=== PATIENT | female | born 1960 | race Caucasian/White ===

== ENCOUNTER → 2024-12-22 | Outpatient (CLI) | payer MEDICARE, OTHER, SELFPAY ==
--- NOTE | 2024-12-22 13:50 | RAD_ITS ---
PROCEDURE: ABDOMEN SINGLE VIEW 12/22/2024 REASON FOR EXAM: CALCULUS OF KIDNEY TECHNIQUE: ABDOMEN SINGLE VIEW COMPARISON: None FINDINGS: Bowel gas: Bowel gas pattern is normal. No evidence of bowel obstruction. Calcifications: There are subtle densities projecting over the left renal shadow measuring up to 7 mm in size. Bones: There are degenerative changes of the spine and sacroiliac joints.Other: RAD/Abdomen Single View IMPRESSION: Subtle densities projecting over the left renal shadow could represent renal st ones, though artifact from overlying enteric contents could appear similar. Reading Location: [id number]
== END | disposition home or self-care (01) ==
LOC: RAD 13:47
PROVIDERS: PCP Family Medicine; Referring Provider Nurse Practitioner; Visit Provider Nurse Practitioner
DX: N20.0 Calculus of kidney (principal)
CPT/HCPCS: 74018

== ENCOUNTER → 2024-12-31 | Outpatient (CLI) | payer MEDICARE, OTHER, SELFPAY ==
--- NOTE | 2024-12-31 10:23 | RAD_ITS ---
PROCEDURE: ABDOMEN SINGLE VIEW 12/31/2024 REASON FOR EXAM: CALCULUS OF KIDNEY TECHNIQUE: ABDOMEN SINGLE VIEW COMPARISON: 12/22/2024 FINDINGS: Interval placement of left-sided ureteral stent in good position. 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 Additional Steinstrasse in the more distal ureter. Additional stones/stone fragments overlying the lower pole of the left kidney. No visible right-sided renal stones. Nondistended bowel. Clear lung bases. RAD/Abdomen Single View IMPRESSION: Interval lithotripsy with placement of ureteral stent in good position. 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 Follow up imaging a s clinically determined. Reading Location: [facility]
== END | disposition home or self-care (01) ==
LOC: RAD 10:19
PROVIDERS: PCP Family Medicine; Referring Provider Urology; Visit Provider Urology
DX: N20.0 Calculus of kidney (principal)
CPT/HCPCS: 74018

== ENCOUNTER → 2025-01-07 | Outpatient (CLI) | payer MEDICARE, OTHER, SELFPAY ==
[2025-01-07 10:55] LABS: Hematocrit 37.1 % (37-47); Hemoglobin 12.5 g/dL (12.0-15.0); Mean Corp Hgb Conc 33.7 g/dL (32-36); Mean Corpuscular Volume 94.4 fL (81-99); Mean Platelet Vol. 10.7 fl (6.2-12.0); Platelet Count 149 K/mm3 (150-450); RBC Distribution Width CV 12.5 % (11.6-14.6); RBC Distribution Width SD 43.4 fl (35.1-43.9); Red Blood Count 3.93 M/mm3 (4.2-5.4); White Blood Count 6.9 K/mm3 (4.4-11.0)
[2025-01-07 11:52] LABS: Anion Gap 13 (5-15); BUN 17 mg/dL (4-19); BUN/Creat Ratio 19.9 RATIO (10-20); Calcium,Total 9.5 mg/dL (7.6-11.0); Carbon Dioxide 22.2 mmol/L (21.0-32.0); Chloride 104 mmol/L (98-108); Glucose 100 mg/dL (70-99); Potassium 4.3 mmol/L (3.3-5.1)
[2025-01-07 18:52] LABS: Xtra Tube EP Lab EXTRA TUBE
== END | disposition home or self-care (01) ==
PROVIDERS: PCP Family Medicine; Referring Provider Urology; Visit Provider Urology
DX: N20.0 Calculus of kidney (principal)
CPT/HCPCS: 36415; 80048; 85027

== ENCOUNTER → 2025-01-11 | Outpatient (CLI) | payer MEDICARE, OTHER, SELFPAY ==
--- NOTE | 2025-01-08 09:30 | CALC_PTH ---
PATIENT: [id number] AGE/SX: 64/F ROOM: RE01/11/[address]: Dr. Tr Daily MD : 1960 BED: DIS: 01/11/2025 SPEC #: [id number] RECD: 01/11/25 15:47 STATUS: POLLO DAMON #: [id number] REHAN: 01/08/25 09:[address]: Tr Daily DEPT: SURGICAL PATHOLOGY RECD BY: Costa Novoa ENTERED: 01/12/25 09:30 SP TYPE: Calculi OTHR DR: Dr. Luis Ledesma MD Tissues: A - CALCULI Procedures: Surgery Specimen Level I HEADER OPERATION: Left ureteroscopy, laser stone, left ureteral stent placement PRE-OP DIAGNOSIS: Calculus of left kidney TISSUE SUBMITTED: A- Left renal stone fragments GROSS DIAGNOSIS A. Kidney, left, stones, ureteroscopy: - Urolithiasis (gross examination only). - Chemical analysis pending, to be reported separately GROSS DESCRIPTION A. Received in formalin labeled with the patient's name and date of . Designated as left kidney stones are multiple irregular, yellow to brown calculi, <0.1 cm to 0.3 cm. No sections are submitted. The specimen is for gross examination only. [place] 01/12/2025 CPT:69141
--- NOTE | 2025-01-08 09:30 | CALC_PTH ---
PATIENT: [facility]OW[facility]UN[facility]ERS [id number] AGE/SX: 64/F ROOM: RE01/11/[address]: Dr. Tr Daily MD : 1960 BED: DIS: 01/11/2025 SPEC #: [id number] RECD: 01/11/25 15:47 STATUS: POLLO DAMON #: [id number] REHAN: 01/08/25 09:[address]: Tr Daily DEPT: SURGICAL PATHOLOGY RECD BY: Costa Novoa ENTERED: 01/12/25 09:30 SP TYPE: Calculi OTHR DR: Dr. Luis Ledesma MD Tissues: A - CALCULI Procedures: Surgery Specimen Level I HEADER OPERATION: Left ureteroscopy, laser stone, left ureteral stent placement PRE-OP DIAGNOSIS: Calculus of left kidney TISSUE SUBMITTED: A- Left renal stone fragments GROSS DIAGNOSIS A. Kidney, left, stones, ureteroscopy: - Urolithiasis (gross examination only). - Chemical analysis pending, to be reported separately GROSS DESCRIPTION A. Received in formalin labeled with the patient's name and date of . Designated as left kidney stones are multiple irregular, yellow to brown calculi, <0.1 cm to 0.3 cm. No sections are submitted. The specimen is for gross examination only. [place] 01/12/2025 CPT:64942
== END | disposition home or self-care (01) ==
LOC: LABSPEC 15:07
PROVIDERS: PCP Family Medicine; Referring Provider Urology; Visit Provider Urology
DX: N20.0 Calculus of kidney (principal)
CPT/HCPCS: 88300

== ENCOUNTER → 2025-01-25 | Outpatient (CLI) | payer MEDICARE, OTHER, SELFPAY ==
[2025-01-25 12:07] LABS: Hematocrit 36.2 % (37-47); Hemoglobin 12.4 g/dL (12.0-15.0); Immature Granulocytes Count 0.040 X10^3/uL (0.0-0.0); Mean Corp Hgb Conc 34.3 g/dL (32-36); Mean Corpuscular Volume 93.3 fL (81-99); Mean Platelet Vol. 11.5 fl (6.2-12.0); NRBC Flagged by Analyzer 0 % (0-5); Platelet Count 163 K/mm3 (150-450); RBC Distribution Width CV 12.5 % (11.6-14.6); RBC Distribution Width SD 42.7 fl (35.1-43.9); Red Blood Count 3.88 M/mm3 (4.2-5.4); White Blood Count 6.8 K/mm3 (4.4-11.0)
[2025-01-25 12:17] LABS: Prothrombin Time (Protime)PT. 13.5 SECONDS (11.7-14.9)
[2025-01-25 12:43] LABS: AST(SGOT) 29 U/L (<=31); Alanine Aminotransfer ALT/SGPT 20 U/L (<=34); Albumin, Serum 4.8 g/dL (3.4-4.8); Alkaline Phosphatase 71 U/L (35-104); Anion Gap 15 (5-15); BUN 10 mg/dL (4-19); BUN/Creat Ratio 13.0 RATIO (10-20); Bilirubin, Direct 0.19 mg/dL (0.00-0.30); Calcium,Total 9.3 mg/dL (7.6-11.0); Carbon Dioxide 23.2 mmol/L (21.0-32.0); Chloride 102 mmol/L (98-108); Globulin 2.7 g/dL (2.2-4.2); Glucose 96 mg/dL (70-99); Potassium 4.1 mmol/L (3.3-5.1)
[2025-01-26 14:08] LABS: Immunoglobulin A 232 mg/dL (87-352)
== END | disposition home or self-care (01) ==
PROVIDERS: PCP Family Medicine; Referring Provider Nurse Practitioner Acute Care; Visit Provider Nurse Practitioner Acute Care
DX: D69.6 Thrombocytopenia, unspecified (principal); K70.30 Alcoholic cirrhosis of liver without ascites; R19.7 Diarrhea, unspecified; R15.9 Full incontinence of feces; K62.5 Hemorrhage of anus and rectum
CPT/HCPCS: 80048; 80076; 82105; 82784; 83516; 85025; 85610

== ENCOUNTER → 2025-02-23 | Outpatient (CLI) | payer MEDICARE, OTHER, SELFPAY ==
--- NOTE | 2025-02-23 09:52 | US_ITS ---
PROCEDURE: ABD LIMITED W/ ELASTOGRAPHY REASON FOR EXAM: CIRRHOSIS COMPARISON: None. TECHNIQUE: Procedure Code: [id number] Modality: US Procedure: ABD LIMITED W/ ELASTOGRAPHY Right upper quadrant abdominal ultrasound. [employer] ElastQ Imaging shear wave elastography for non-invasive assessment of liver tissue stiffness. [employer] EPIQ Elite. FINDINGS: LIVER: Size: Unremarkable Length: 16.1 cm cm Echotexture: Normal Contour: Normal Lesions: None identified Elastography: EQI Med: 4.3 kPa EQI Med Royal: 1.19 m/s IQR/Med: 12.9 %* GALLBLADDER: No stones sludge wall thickening or tenderness. COMMON BILE DUCT: Normal measuring 4 mm . PANCREAS: Normal Visualized portions of the right kidney are unremarkable. No right upper quadrant ascites. Spleen: The spleen measures 10.8 cm 6.1 cm 4.8 cm. US/ABD Limited w/ Elastography IMPRESSION: No evidence of hepatic fibrosis. Reference Values: SRU <1.37 m/s (5.7kPa): No to mild fibrosis 1.37 m/s - 2.2 m/s: Moderate to severe fibrosis >2.2 m/s (15kPa): Significant fibrosis / cirrhosis METAVIR Score F2 or higher: 1.34 m/s (5.7kPa) F3 or higher: 1.55 m/s (7.3kPa) F4: 1.80 m/s (10kPa) * If the IQR/Med is >30%, the variance in the measurements is a large and the a ccuracy of the measurement may be in question. Reading Location: [place] [id number]
== END | disposition home or self-care (01) ==
LOC: US 09:40
PROVIDERS: PCP Family Medicine; Referring Provider Nurse Practitioner Acute Care; Visit Provider Nurse Practitioner Acute Care
DX: D69.6 Thrombocytopenia, unspecified (principal); R19.7 Diarrhea, unspecified; R15.9 Full incontinence of feces; K62.5 Hemorrhage of anus and rectum
CPT/HCPCS: 76705; 76981

== ENCOUNTER 2025-03-23 12:39 | Day surgery (SDC) | payer MEDICARE, OTHER, SELFPAY ==
[2025-03-23] VITALS (8 sets, daily range): BP systolic 86–116; BP diastolic 46–64; PULSE 60–69; RESP 12–16; TEMP 36.3–37.1; O2SAT 94–98; BMI 21.2
[2025-03-23] MEDS: Lactated Ringers 1,000 ML 15 ML IV (13:18)
== END 2025-03-23 16:22 | disposition home or self-care (01) ==
PROVIDERS: PCP Family Medicine; Referring Provider Family Medicine; Visit Provider Internal Medicine Gastroenterology
PROC: 0DJD8ZZ Inspection of Lower Intestinal Tract, Via Natural or Artificial Opening Endoscopic (ICD-10-PCS; CPT 45378; principal; 2025-03-23 13:55)
DX: K62.5 Hemorrhage of anus and rectum (principal); K29.80 Duodenitis without bleeding; K63.5 Polyp of colon; K21.00 Gastro-esophageal reflux disease with esophagitis, without bleeding; K57.30 Diverticulosis of large intestine without perforation or abscess without bleeding; R15.9 Full incontinence of feces; K74.00 Hepatic fibrosis, unspecified; K22.2 Esophageal obstruction; F17.210 Nicotine dependence, cigarettes, uncomplicated; K31.A19 Gastric intestinal metaplasia without dysplasia, unspecified site; K29.50 Unspecified chronic gastritis without bleeding; K52.9 Noninfective gastroenteritis and colitis, unspecified
CPT/HCPCS: 45380; 43239; 88305; 88342; J2405